=== PATIENT | male | born 1995 | race Caucasian/White ===

== ENCOUNTER 2018-03-06 14:31 | Emergency (ER) | payer OTHER ==
[~2018-03-06] VITALS: Ht 190.5 cm; Wt 117.0 kg
[2018-03-06 16:22] VITALS: BP 148/84
== END 2018-03-06 16:24 | disposition home or self-care (01) ==
LOC: EME 14:31
PROC: 0HQGXZZ Repair Left Hand Skin, External Approach (ICD-10-PCS; principal; 2018-03-06)
DX: S67.22XA Crushing injury of left hand, initial encounter (principal); S61.215A Laceration without foreign body of left ring finger without damage to nail, initial encounter; W23.0XXA Caught, crushed, jammed, or pinched between moving objects, initial encounter; Y99.0 Civilian activity done for income or pay
CPT/HCPCS: 73130; 99281; 99284